=== PATIENT | female | born 2000 | race Caucasian/White ===

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

== ENCOUNTER 2018-08-17 14:14 | Emergency (ER) | payer MEDICAID ==
[2018-08-17 14:25] VITALS: BP 108/61
--- NOTE | 2018-08-17 14:26 | EDM.PDOC ---
ED HPI GENERAL MEDICAL PROBLEM - General Chief Complaint: Skin Complaint Stated Complaint: BOIL Time Seen by Provider: 08/17/18 14:26 Source of Information: Reports: Patient, Old Records, RN, RN Notes Reviewed History Limitations: Reports: No Limitations - History of Present Illness INITIAL COMMENTS - FREE TEXT/NARRATIVE: Pt presents to ER from home by POV with c/o abscess or boil to left axilla that began as an infected hair about 3 days ago. Pt denies drainage, fever, chills, or any other complaints. Denies Hx of MRSA. Onset: Gradual Duration: Day(s): (3) Location: Reports: Upper Extremity, Left (axilla) Quality: Reports: Ache, Pressure Severity: Moderate Improves with: Reports: None Worsens with: Reports: None Associated Symptoms: Reports: No Other Symptoms Left Axillary Pain Score (Numeric/FACES): 2 - Related Data Allergies Allergy/AdvReac Type Severity Reaction Status Date / Time No Known Allergies Allergy Verified 08/17/18 14:58 Home Meds: Home Meds Ibuprofen 400 mg PO Q6H PRN 11/02/17 [History] Past Medical History - Past Health History Medical/Surgical History: Denies Medical/Surgical History Other HEENT History: seasonal allergies Cardiovascular History: Reports: None Respiratory History: Reports: None Gastrointestinal History: Reports: None Genitourinary History: Reports: None 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, Musculoskeletal History: Reports: None Neurological History: Reports: None Other Psychiatric History: arm cutting noted to arms Endocrine/Metabolic History: Reports: None Hematologic History: Reports: None Immunologic History: Reports: None Oncologic (Cancer) History: Reports: None Dermatologic History: Reports: None - Infectious Disease History Infectious Disease History: Reports: None - Past Surgical History Head Surgeries/Procedures: Reports: None Social & Family History - Family History Family Medical History: Noncontributory - Caffeine Use Caffeine Use: Reports: None Other Caffeine Use: one/day - Living Situation & Occupation Living situation: Reports: with Family ED ROS GENERAL - Review of Systems Review Of Systems: ROS reveals no pertinent complaints other than HPI. ED EXAM, SKIN/RASH Exam: See Below Exam Limited By: No Limitations General Appearance: Alert, WD/WN, No Apparent Distress Throat/Mouth: Normal Inspection, Normal Voice, No Airway Compromise Head: Atraumatic, Normocephalic Neck: Normal Inspection, Supple, Non-Tender, Full Range of Motion. No: Lymphadenopathy (L), Lymphadenopathy (R) Respiratory/Chest: No Respiratory Distress, Lungs Clear, Normal Breath Sounds, No Accessory Muscle Use, Chest Non-Tender Cardiovascular: Regular Rate, Rhythm Extremities: Normal Range of Motion, Normal Capillary Refill, Other (2.5cm oval fluctuant abscess at left axilla, no drainage, slight increased warmth, mild surface erythema) ED SKIN PROCEDURES - I&D Site: left axilla Skin Prep: Chlorhexidine (Hibiciens), Saline, Sterile Drape Local Anesthesia: Lidocaine: 1% Plain Local Anesthetic Volume: 5cc Area Incised With: 11 Blade Drainage: Purulent, Moderate Amount Probed to Break Up Loculations: Yes Packed With: 1/4 in. Iodoform Sterile Dressinx4(s) Complications: No Course - Vital Signs Last Recorded V/S: Last Vital Signs Temp 98.0 F 08/17/18 14:23 Pulse 81 08/17/18 14:23 Resp 18 08/17/18 14:23 BP 108/61 08/17/18 14:23 Pulse Ox 100 08/17/18 14:23 - Orders/Labs/Meds Orders: Active Orders 24 hr Category Date Time Status CULTURE WOUND [RM] Stat Lab 08/17/18 14:35 Ordered Meds: Medications Discontinued Medications Generic Name Dose Route Start Last Admin Trade Name Glen PRN Reason Stop Dose Admin Bacitracin 1 dose 08/17/18 14:34 08/17/18 14:54 Bacitracin Oint 1 Gm TOP 08/17/18 14:35 1 dose ONETIME ONE Administration Clindamycin HCl 300 mg 08/17/18 14:34 08/17/18 14:54 Cleocin PO 08/17/18 14:35 300 mg ONETIME ONE Administration Lidocaine HCl 30 ml 08/17/18 14:34 08/17/18 14:54 Xylocaine-Mpf 1% INJECT 08/17/18 14:35 30 ml ONETIME ONE Administration Departure - Departure Time of Disposition: 15:04 Disposition: Home, Self-Care 01 Condition: Good Clinical Impression: Abscess of left axilla - Discharge Information *PRESCRIPTION DRUG MONITORING PROGRAM REVIEWED*: No *COPY OF PRESCRIPTION DRUG MONITORING REPORT IN PATIENT SKYE: No Instructions: Skin Abscess Forms: ED Department Discharge Additional Instructions: Rx: Clindamycin 300mg Remove packing tomorrow night (if it doesn't fall out sooner). May shower normally. Do not swim or soak in tub until the wound completely heals. Follow up in clinic next week for recheck. - My Orders Last 24 Hours: My Active Orders 08/17/18 14:35 CULTURE WOUND [RM] Stat - Assessment/Plan Last 24 Hours: My Active Orders 08/17/18 14:35 CULTURE WOUND [RM] Stat
[2018-08-17] MEDS ORDERED: Clindamycin HCl 150 MG Cap PO ONE (14:34)
[2018-08-17] MEDS ORDERED: Lidocaine 1% 30 ML SDV INJECT ONE (14:34)
[2018-08-17] MEDS ORDERED: Bacitracin Oint 1 GM U/D Packet TOP ONE (14:34)
== END 2018-08-17 15:21 | disposition home or self-care (01) ==
LOC: DL.ED 14:14
DX: L02.412 Cutaneous abscess of left axilla (principal)
CPT/HCPCS: 10061; 87070; 87077; 87186; 99283; A9270; J2001

== ENCOUNTER 2018-10-19 21:38 | Emergency (ER) | payer SELFPAY ==
[2018-10-19 21:45] VITALS: BP 125/73
--- NOTE | 2018-10-19 22:02 | EDM.PDOC ---
ED HPI GENERAL MEDICAL PROBLEM - General Chief Complaint: Eye Problems Stated Complaint: LEFT EYE SWALLON IN PAIN Time Seen by Provider: 10/19/18 21:55 Source of Information: Reports: Patient History Limitations: Reports: No Limitations - History of Present Illness INITIAL COMMENTS - FREE TEXT/NARRATIVE: This 17 yo female patient reports to the ED with redness and swelling of her left upper eyelid. The patient reports her symptoms started 3 days ago. The patient has been using warm packs, but continues to have symptoms. Onset Date: 10/16/18 Duration: Day(s):, Constant Location: Reports: Face (left eye) Quality: Reports: Ache, Dull Severity: Mild Improves with: Reports: None Worsens with: Reports: None Context: Reports: Other - Related Data Allergies Allergy/AdvReac Type Severity Reaction Status Date / Time No Known Allergies Allergy Verified 10/19/18 21:44 Home Meds: Home Meds Ibuprofen 400 mg PO Q6H PRN 11/02/17 [History] Past Medical History - Past Health History Medical/Surgical History: Denies Medical/Surgical History Other HEENT History: seasonal allergies Cardiovascular History: Reports: None Respiratory History: Reports: None Gastrointestinal History: Reports: None Genitourinary History: Reports: None 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, Musculoskeletal History: Reports: None Neurological History: Reports: None Other Psychiatric History: arm cutting noted to arms Endocrine/Metabolic History: Reports: None Hematologic History: Reports: None Immunologic History: Reports: None Oncologic (Cancer) History: Reports: None Dermatologic History: Reports: None - Infectious Disease History Infectious Disease History: Reports: None - Past Surgical History Head Surgeries/Procedures: Reports: None HEENT Surgical History: Reports: Other (See Below) Social & Family History - Family History Family Medical History: Noncontributory - Tobacco Use Smoking Status *Q: Current Every Day Smoker Years of Tobacco use: 3 Packs/Tins Daily: 0.1 - Caffeine Use Caffeine Use: Reports: None Other Caffeine Use: one/day - Recreational Drug Use Recreational Drug Use: No - Living Situation & Occupation Living situation: Reports: with Family ED ROS GENERAL - Review of Systems Review Of Systems: ROS reveals no pertinent complaints other than HPI. ED EXAM GENERAL W FULL EYE - Physical Exam Exam: See Below Exam Limited By: No Limitations General Appearance: Alert, WD/WN, No Apparent Distress Eye Exam: Left Eye: Other (Upper eyelid stye) Eyelids: Left: Stye Conjunctiva & Sclera: Bilateral: Normal Appearance Cornea Exam: Bilateral: Normal Appearance Extraocular Movements: Bilateral: Intact Pupillary Reaction: Bilateral: Brisk Ears: Normal External Exam, Normal Canal, Hearing Grossly Normal, Normal TMs Nose: Normal Inspection, Normal Mucosa, No Blood Throat/Mouth: Normal Inspection, Normal Lips, Normal Teeth, Normal Gums, Normal Oropharynx, Normal Voice, No Airway Compromise Head: Atraumatic, Normocephalic Neck: Normal Inspection, Supple, Non-Tender, Full Range of Motion Respiratory/Chest: No Respiratory Distress, Lungs Clear, Normal Breath Sounds, No Accessory Muscle Use, Chest Non-Tender Cardiovascular: Normal Peripheral Pulses, Regular Rate, Rhythm, No Edema, No Gallop, No JVD, No Murmur, No Rub GI/Abdominal: Normal Bowel Sounds, Soft, Non-Tender, No Organomegaly, No Distention, No Abnormal Bruit, No Mass (Female) Exam: Deferred Rectal (Female) Exam: Deferred Back Exam: Normal Inspection Extremities: Normal Inspection, Normal Range of Motion, Non-Tender, Normal Capillary Refill, No Pedal Edema Neurological: Alert, Oriented, CN II-XII Intact, Normal Cognition, Normal Gait, Normal Reflexes, No Motor/Sensory Deficits Course - Vital Signs Last Recorded V/S: Last Vital Signs Temp 36.3 C 10/19/18 21:42 Pulse 110 H 10/19/18 21:42 Resp 18 10/19/18 21:42 BP 125/73 10/19/18 21:42 Pulse Ox 99 10/19/18 21:42 Departure - Departure Time of Disposition: 21:59 Disposition: Home, Self-Care 01 Condition: Fair Clinical Impression: Hordeolum externum left upper eyelid - Discharge Information *PRESCRIPTION DRUG MONITORING PROGRAM REVIEWED*: Not Applicable *COPY OF PRESCRIPTION DRUG MONITORING REPORT IN PATIENT SKYE: Not Applicable Instructions: Stye Forms: ED Department Discharge Care Plan Goals: The patient was advised of the examination results during the visit. The patient was encouraged to use warm packs to the area. If the patient has any additional symptoms or concerns, the patient should either return to the emergency department or visit her primary care facility.
== END 2018-10-19 22:03 | disposition home or self-care (01) ==
LOC: DL.ED 21:38
DX: H00.014 Hordeolum externum left upper eyelid (principal); F17.210 Nicotine dependence, cigarettes, uncomplicated
CPT/HCPCS: 99282

== ENCOUNTER 2020-03-14 13:35 | Emergency (ER) | payer MEDICAID ==
[2020-03-14 14:09] VITALS: BP 116/68; PULSE 121
[2020-03-14 14:38] LABS: ANION GAP 12.6 mEq/L (7-13); CHLORIDE,CL 105 mmol/L (98-107); SODIUM,NA 140 mmol/L (136-145)
--- NOTE | 2020-03-14 14:38 | EDM.PDOC ---
ED HPI GENERAL MEDICAL PROBLEM - General Chief Complaint: Skin Complaint Stated Complaint: FACE AND BODY BROKE OUT IN BLISTERS Time Seen by Provider: 03/14/20 14:25 Source of Information: Reports: Patient History Limitations: Reports: No Limitations - History of Present Illness INITIAL COMMENTS - FREE TEXT/NARRATIVE: This 19 yo female patient reports to the ED due to an infection on her face, ears and scalp. The patient reports she noticed the symptoms started yesterday and have gotten worse. The patient reports she does have a history of MRSA in her family and home. The patient reports she has not been able to get into the clinic for this. Onset Date: 03/13/20 Duration: Constant, Getting Worse Location: Reports: Head, Face Quality: Reports: Other Severity: Moderate Improves with: Reports: None Worsens with: Reports: None Context: Reports: Other Associated Symptoms: Reports: No Other Symptoms Head Pain Score (Numeric/FACES): 7 - Related Data Allergies Allergy/AdvReac Type Severity Reaction Status Date / Time No Known Allergies Allergy Verified 03/14/20 14:20 Home Meds: Home Meds Ibuprofen 400 mg PO Q6H PRN 11/02/17 [History] Acetaminophen [Tylenol Extra Strength] 1,000 mg PO Q6H PRN 10/23/18 [History] Clindamycin HCl 150 mg PO TID 10/23/18 [History] L.acidoph,Paracasei, B.lactis [Probiotic] 2 each PO DAILY 10/23/18 [History] Tobramycin [Tobrex Ophth Oint] 1 applic EYELF QID 10/23/18 [History] Past Medical History - Past Health History Medical/Surgical History: Denies Medical/Surgical History Other HEENT History: seasonal allergies Cardiovascular History: Reports: None Respiratory History: Reports: None Gastrointestinal History: Reports: None Genitourinary History: Reports: None [employer]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, Musculoskeletal History: Reports: None Neurological History: Reports: None Other Psychiatric History: arm cutting noted to arms Endocrine/Metabolic History: Reports: None Hematologic History: Reports: None Immunologic History: Reports: None Oncologic (Cancer) History: Reports: None Dermatologic History: Reports: None - Infectious Disease History Infectious Disease History: Reports: None - Past Surgical History Head Surgeries/Procedures: Reports: None HEENT Surgical History: Reports: Other (See Below) Social & Family History - Family History Family Medical History: No Pertinent Family History - Caffeine Use Caffeine Use: Reports: Coffee, Soda Other Caffeine Use: one/day - Living Situation & Occupation Living situation: Reports: with Family ED ROS GENERAL - Review of Systems Review Of Systems: Comprehensive ROS is negative, except as noted in HPI. ED EXAM, SKIN/RASH Exam: See Below Exam Limited By: No Limitations General Appearance: Alert, WD/WN, Moderate Distress Eye Exam: Bilateral Eye: EOMI, Normal Inspection, PERRL Ears: Normal Canal, Hearing Grossly Normal, Normal TMs Nose: Normal Inspection, Normal Mucosa, No Blood Throat/Mouth: Normal Inspection, Normal Lips, Normal Teeth, Normal Gums, Normal Oropharynx, Normal Voice, No Airway Compromise Head: Atraumatic, Normocephalic Neck: Normal Inspection, Supple, Non-Tender, Full Range of Motion Respiratory/Chest: No Respiratory Distress, Lungs Clear, Normal Breath Sounds, No Accessory Muscle Use, Chest Non-Tender Cardiovascular: Normal Peripheral Pulses, Regular Rate, Rhythm, No Edema, No Gallop, No JVD, No Murmur, No Rub GI/Abdominal: Normal Bowel Sounds, Soft, Non-Tender, No Organomegaly, No Distention, No Abnormal Bruit, No Mass (Female) Exam: Deferred Rectal (Female) Exam: Deferred Back Exam: Normal Inspection, Full Range of Motion, NT Extremities: Normal Inspection, Normal Range of Motion, Non-Tender, No Pedal Edema, Normal Capillary Refill Neurological: Alert, Oriented Psychiatric: Normal Affect, Normal Mood Skin: Erythema, Excoriations, Wound/Incision, Other (Areas of concern, upper lip (with honey crusting), chin, right ear, right scalp, right posterior neck, left ear and left scalp.) Location, Skin: Head, Face Characteristics: Erythematous Associated features: Tenderness, Swelling, Crusting. No: Weeping Lymphatic: No Adenopathy Course - Vital Signs Last Recorded V/S: Last Vital Signs Temp 37.0 C 03/14/20 14:08 Pulse 121 H 03/14/20 14:08 Resp 18 03/14/20 14:08 BP 116/68 03/14/20 14:08 Pulse Ox 100 03/14/20 14:08 - Orders/Labs/Meds Orders: Active Orders 24 hr Category Date Time Status CULTURE URINE [RM] Stat Lab 03/14/20 14:50 Received UA W/MICROSCOPIC [URIN] Stat Lab 03/14/20 14:50 Results Labs: Laboratory Tests 03/14/20 03/14/20 03/14/20 Range/Units 14:13 14:13 14:50 WBC 10.8 H (5.0-10.0) 10^3/uL RBC 4.35 (4.2-5.4) 10^6/uL Hgb 11.3 L D (12.0-16.0) g/dL Hct 34.7 L (37.0-47.0) % MCV 79.8 L D (80-100) fL MCH 26.0 L (27.0-34.0) pg MCHC 32.6 L (33.0-35.0) g/dL Plt Count 259 D (150-450) 10^3/uL Sodium 140 (136-145) mmol/L Potassium 3.6 (3.5-5.1) mmol/L Chloride 105 (98-107) mmol/L Carbon Dioxide 26 (21-32) mmol/L Anion Gap 12.6 (7-13) mEq/L BUN 7 (7-18) mg/dL Creatinine 0.56 (0.55-1.02) mg/dL Est Cr Clr Drug Dosing 114.02 mL/min Estimated GFR (MDRD) > 60 BUN/Creatinine Ratio 12.5 (No establ ref range) Glucose 112 H (74-99) mg/dL Calcium 7.9 L (8.5-10.1) mg/dL Total Bilirubin 0.2 (0.2-1.0) mg/dL AST 34 (15-37) U/L ALT 110 H (14-59) U/L Alkaline Phosphatase 168 H (46-116) U/L Total Protein 6.4 (6.4-8.2) g/dL Albumin 2.8 L (3.4-5.0) g/dL Globulin 3.6 Albumin/Globulin Ratio 0.78 Urine Color Yellow (YELLOW) Urine Appearance Clear (CLEAR) Urine pH 7.0 (5.0-9.0) Ur Specific [place] 1.025 (1.005-1.030) Urine Protein Negative (NEGATIVE) Urine Glucose (UA) Negative (NEGATIVE) Urine Ketones Negative (NEGATIVE) Urine Occult Blood Moderate H (NEGATIVE) Urine Nitrite Negative (NEGATIVE) Urine Bilirubin Negative (NEGATIVE) Urine Urobilinogen 1.0 (0.2-1.0) mg/dL Ur Leukocyte Esterase Trace H (NEGATIVE) Urine HCG, Qual Urine Opiates Screen (NEGATIVE) Ur Oxycodone Screen (NEGATIVE) Urine Methadone Screen (NEGATIVE) Ur Barbiturates Screen (NEGATIVE) U Tricyclic Antidepress (NEGATIVE) Ur Phencyclidine Scrn (NEGATIVE) Ur Amphetamine Screen (NEGATIVE) U Methamphetamines Scrn (NEGATIVE) Urine MDMA Screen (NEGATIVE) U Benzodiazepines Scrn (NEGATIVE) Urine Cocaine Screen (NEGATIVE) U Marijuana (THC) Screen (NEGATIVE) 03/14/20 03/14/20 Range/Units 14:50 14:50 WBC (5.0-10.0) 10^3/uL RBC (4.2-5.4) 10^6/uL Hgb (12.0-16.0) g/dL Hct (37.0-47.0) % MCV (80-100) fL MCH (27.0-34.0) pg MCHC (33.0-35.0) g/dL Plt Count (150-450) 10^3/uL Sodium (136-145) mmol/L Potassium (3.5-5.1) mmol/L Chloride (98-107) mmol/L Carbon Dioxide (21-32) mmol/L Anion Gap (7-13) mEq/L BUN (7-18) mg/dL Creatinine (0.55-1.02) mg/dL Est Cr Clr Drug Dosing mL/min Estimated GFR (MDRD) BUN/Creatinine Ratio (No establ ref range) Glucose (74-99) mg/dL Calcium (8.5-10.1) mg/dL Total Bilirubin (0.2-1.0) mg/dL AST (15-37) U/L ALT (14-59) U/L Alkaline Phosphatase (46-116) U/L Total Protein (6.4-8.2) g/dL Albumin (3.4-5.0) g/dL Globulin Albumin/Globulin Ratio Urine Color (YELLOW) Urine Appearance (CLEAR) Urine pH (5.0-9.0) Ur Specific [place] (1.005-1.030) Urine Protein (NEGATIVE) Urine Glucose (UA) (NEGATIVE) Urine Ketones (NEGATIVE) Urine Occult Blood (NEGATIVE) Urine Nitrite (NEGATIVE) Urine Bilirubin (NEGATIVE) Urine Urobilinogen (0.2-1.0) mg/dL Ur Leukocyte Esterase (NEGATIVE) Urine HCG, Qual Negative Urine Opiates Screen Negative (NEGATIVE) Ur Oxycodone Screen Negative (NEGATIVE) Urine Methadone Screen Negative (NEGATIVE) Ur Barbiturates Screen Negative (NEGATIVE) U Tricyclic Antidepress Negative (NEGATIVE) Ur Phencyclidine Scrn Negative (NEGATIVE) Ur Amphetamine Screen Negative (NEGATIVE) U Methamphetamines Scrn Positive H (NEGATIVE) Urine MDMA Screen Negative (NEGATIVE) U Benzodiazepines Scrn Negative (NEGATIVE) Urine Cocaine Screen Negative (NEGATIVE) U Marijuana (THC) Screen Negative (NEGATIVE) Departure - Departure Time of Disposition: 15:06 Disposition: Home, Self-Care 01 Condition: Fair Clinical Impression: Cellulitis diffuse, face, Impetigo - Discharge Information *PRESCRIPTION DRUG MONITORING PROGRAM REVIEWED*: Not Applicable *COPY OF PRESCRIPTION DRUG MONITORING REPORT IN PATIENT SKYE: Not Applicable Instructions: Cellulitis, Adult, [id number], Impetigo, Adult Forms: ED Department Discharge Care Plan Goals: The patient was advised of the examination results during the visit. The patient was also given a script for Clindamycin (300 mg) to take 1 by mouth 4 times per day for 10 days. The patient was encouraged to follow-up with a her primary care facility in 1 week. If the patient has any additional symptoms or concerns, the patient should either follow-up with her primary care facility or return to the emergency department. Sepsis Event Note (ED) - Evaluation Sepsis Screening Result: No Definite Risk - Focused Exam Vital Signs: Vital Signs Temp Pulse Resp BP Pulse Ox 03/14/20 14:08 37.0 C 121 H 18 116/68 100 - My Orders Last 24 Hours: My Active Orders 03/14/20 14:50 CULTURE URINE [RM] Stat UA W/MICROSCOPIC [URIN] Stat - Assessment/Plan Last 24 Hours: My Active Orders 03/14/20 14:50 CULTURE URINE [RM] Stat UA W/MICROSCOPIC [URIN] Stat
== END 2020-03-14 15:15 | disposition home or self-care (01) ==
LOC: DL.ED 13:35
DX: L03.211 Cellulitis of face (principal); L01.00 Impetigo, unspecified
CPT/HCPCS: 36415; 80053; 80305-QW; 81001; 81025; 85027; 87086; 99283

== ENCOUNTER 2022-01-09 03:04 | Emergency (ER) | payer MEDICAID ==
[2022-01-09 04:34] VITALS: PULSE 66
[2022-01-09 05:14] LABS: CORONAVIRUS COVID-19 NAA NEGATIVE (NEGATIVE)
== END 2022-01-09 06:39 | disposition home or self-care (01) ==
LOC: DL.ED 03:04
DX: R06.02 Shortness of breath (principal); Z20.822 Contact with and (suspected) exposure to COVID-19
CPT/HCPCS: 0240U; 36415; 71045; 82150; 83690; 83880; 84443; 84484; 93005; 99285

== ENCOUNTER 2022-07-19 22:41 | Emergency (ER) | payer MEDICAID ==
[2022-07-19] MEDS ORDERED: fentaNYL 100 MCG/2 ML SDV IVPUSH ONE ×2 (23:03→23:17)
[2022-07-19] MEDS ORDERED: Ondansetron 4 MG/2 ML SDV IVPUSH ONE (23:03)
[2022-07-19] MEDS ORDERED: Lactated Ringers 1,000 ML IV ONE (23:03)
[2022-07-19 23:23] LABS: BASOPHILS PERCENT AUTO 0.2 % (0.0-1.0); EOSINOPHILS PERCENT AUTO 0.4 % (1.0-3.0); HEMATOCRIT 35.9 % (37.0-47.0); HEMOGLOBIN 12.1 g/dL (12.0-16.0); LYMPHOCYTES PERCENT AUTO 12.8 % (20.5-50.1); MEAN CORPUSCULAR HEMOGLOBIN 29.3 pg (27.0-34.0); MEAN CORPUSCULAR HGB CONC 33.7 g/dL (33.0-35.0); MEAN CORPUSCULAR VOLUME 86.9 fL (80-100); MONOCYTES PERCENT AUTO 5.1 % (2-8); NEUTROPHILS PERCENT AUTO 81.5 % (42.2-75.2); PLATELET COUNT,PLT 231 10^3/uL (150-450); RED BLOOD CELL COUNT 4.13 10^6/uL (4.2-5.4); WHITE BLOOD CELL COUNT,WBC 10.7 10^3/uL (5.0-10.0)
[2022-07-19 23:41] LABS: ALANINE AMINOTRANSFERASE,ALT 95 U/L (14-59); ALBUMIN 3.5 g/dL (3.4-5.0); ALKALINE PHOSPHATASE 121 U/L (46-116); AMYLASE 77 U/L (25-115); ANION GAP 12.8 mEq/L (7-13); ASPARTATE AMNIOTRANSFERASE,AST 50 U/L (15-37); BILIRUBIN TOTAL 0.3 mg/dL (0.2-1.0); BLOOD UREA NITROGEN,BUN 10 mg/dL (7-18); BUN/CREATININE RATIO 12.3 (No establ ref range); CARBON DIOXIDE,CO2 23 mmol/L (21-32); CHLORIDE,CL 107 mmol/L (98-107); CREATININE 0.81 mg/dL (0.55-1.02); ETHANOL BLOOD MEDICAL 105 mg/dL (0); GLUCOSE RANDOM 116 mg/dL (70-99); LIPASE 131 U/L (73-393); POTASSIUM,K 3.8 mmol/L (3.5-5.1); PROTEIN TOTAL,TP 6.9 g/dL (6.4-8.2); SODIUM,NA 139 mmol/L (136-145)
[2022-07-19 23:43] LABS: ESTIMATED GFR 105 mL/min (>=60)
[2022-07-19 23:46] LABS: HCG QUALITATIVE,SERUM NEGATIVE (NEGATIVE)
[2022-07-20] MEDS ORDERED: HYDROmorphone 1 MG/ML Syringe IVPUSH ONE (00:01)
[2022-07-20] MEDS ORDERED: ceFAZolin 2 GM Vial IVPUSH ONE (00:01)
[2022-07-20 01:08] LABS: APPEARANCE,URINE CLEAR (CLEAR); BILIRUBIN,URINE NEGATIVE (NEGATIVE); COLOR,URINE YELLOW (YELLOW); GLUCOSE,URINE NEGATIVE (NEGATIVE); KETONES,URINE NEGATIVE (NEGATIVE); LEUKOCYTE ESTERASE,URINE NEGATIVE (NEGATIVE); NITRITE,URINE NEGATIVE (NEGATIVE); OCCULT BLOOD,URINE LARGE (NEGATIVE); PROTEIN,URINE NEGATIVE (NEGATIVE); UROBILINOGEN,URINE 0.2 mg/dL (0.2-1.0)
[2022-07-20 01:16] LABS: AMORPHOUS SEDIMENT,URINE FEW /HPF (NOT SEEN); BACTERIA,URINE FEW /HPF (0-FEW/HPF); EPITHELIAL CELLS,URINE FEW /HPF (NOT SEEN); MUCUS,URINE FEW /LPF (NOT SEEN); RBC,URINE 0-5 /HPF (0-5); WBC,URINE 0-5 /HPF (0-5/HPF)
[2022-07-20 01:17] LABS: AMPHETAMINES,URINE NEGATIVE (NEGATIVE); BARBITURATES,URINE NEGATIVE (NEGATIVE); BENZODIAZEPINE,URINE NEGATIVE (NEGATIVE); MDMA (ECSTASY), URINE NEGATIVE (NEGATIVE); METHADONE,URINE NEGATIVE (NEGATIVE); METHAMPHETAMINES,URINE NEGATIVE (NEGATIVE); OPIATES,URINE NEGATIVE (NEGATIVE); OXYCODONE,URINE NEGATIVE (NEGATIVE); PHENCYCLIDINE,URINE NEGATIVE (NEGATIVE); TCA,URINE NEGATIVE (NEGATIVE)
[2022-07-20] MEDS ORDERED: Take Home: Acetaminophen/oxyCODONE 325-5 MG, 5 Tab Pack PO ONE (01:40)
[2022-07-20] MEDS ORDERED: fentaNYL 100 MCG/2 ML SDV IVPUSH ONE (01:40)
[2022-07-20] MEDS ORDERED: Take Home: Ondansetron 4 MG Tab.DIS, 5 Tab Pack PO ONE (01:41)
== END 2022-07-20 03:10 ==
LOC: DL.ED 22:41
DX: S42.351B Displaced comminuted fracture of shaft of humerus, right arm, initial encounter for open fracture (principal); S52.201A Unspecified fracture of shaft of right ulna, initial encounter for closed fracture; F10.920 Alcohol use, unspecified with intoxication, uncomplicated; Y90.5 Blood alcohol level of 100-119 mg/100 ml; V86.55XA Driver of 3- or 4- wheeled all-terrain vehicle (ATV) injured in nontraffic accident, initial encounter
CPT/HCPCS: 36415; 72125; 73080; 80053; 80305; 80307; 81001; 82150; 83690; 84703; 85025; 99284; J3010

== ENCOUNTER 2023-01-11 19:59 | Emergency (ER) | payer MEDICAID ==
[2023-01-11 20:06] VITALS: BP 132/80; PULSE 101
== END 2023-01-11 20:32 | disposition home or self-care (01) ==
LOC: DL.ED 19:59
DX: T54.91XA Toxic effect of unspecified corrosive substance, accidental (unintentional), initial encounter (principal); T23.502A Corrosion of first degree of left hand, unspecified site, initial encounter; F17.210 Nicotine dependence, cigarettes, uncomplicated; Z79.899 Other long term (current) drug therapy
CPT/HCPCS: 99282; 99283

== ENCOUNTER 2023-07-24 14:43 | Emergency (ER) | payer MEDICAID ==
[2023-07-24 15:08] VITALS: BP 110/80; PULSE 82
[2023-07-24 15:56] LABS: ALBUMIN 3.6 g/dL (3.4-5.0); ANION GAP 12.3 mEq/L (7-13); BILIRUBIN TOTAL 0.4 mg/dL (0.2-1.0); BUN/CREATININE RATIO 20.3 (No establ ref range); CALCIUM 8.4 mg/dL (8.5-10.1); CREATININE 0.79 mg/dL (0.55-1.02); EST CRCL DRUG DOSING (CG) 78.87 mL/min; POTASSIUM,K 4.3 mmol/L (3.5-5.1); PROTEIN TOTAL,TP 7.2 g/dL (6.4-8.2)
== END 2023-07-24 16:21 | disposition home or self-care (01) ==
LOC: DL.ED 14:43
DX: M94.0 Chondrocostal junction syndrome [Tietze] (principal); R94.5 Abnormal results of liver function studies; Z79.899 Other long term (current) drug therapy
CPT/HCPCS: 36415; 71045; 80053; 85025; 85379; 93005; 93010; 99284; 99285

== ENCOUNTER 2024-05-02 20:58 | Emergency (ER) | payer MEDICAID ==
[2024-05-02] MEDS: Oxymetazoline 0.05% Nasal Spray 30 ML Bottle NAS ONE (21:14)
[2024-05-02 21:17] VITALS: BP 127/78; PULSE 90
== END 2024-05-02 21:20 | disposition home or self-care (01) ==
LOC: DL.ED 20:58
DX: B34.9 Viral infection, unspecified (principal); Z79.899 Other long term (current) drug therapy; Z79.1 Long term (current) use of non-steroidal anti-inflammatories (NSAID)
CPT/HCPCS: 99282; 99283; A9270-GY

== ENCOUNTER 2024-10-11 08:05 | Inpatient (IN) | payer MEDICAID ==
[2024-10-11] MEDS ORDERED: Ondansetron 4 MG/2 ML SDV IVPUSH PRN (08:44)
[2024-10-11] MEDS ORDERED: Carboprost Tromethamine 250 MCG/1 ML Amp IM PRN (08:44)
[2024-10-11] MEDS ORDERED: Sodium Chloride 0.9% 10 ML Syringe FLUSH PRN (08:44)
[2024-10-11 08:49] LABS: PLATELET COUNT,PLT 215.0 10^3/uL (150-450); RED BLOOD CELL COUNT 3.84 10^6/uL (4.2-5.4); WHITE BLOOD CELL COUNT,WBC 10.6 10^3/uL (5.0-10.0)
[2024-10-11] MEDS: Oxytocin/Normal Saline 30 UNIT/500 ML BAG IV SCH (09:10)
[2024-10-11] MEDS: Lactated Ringers 1,000 ML IV SCH (09:10)
[2024-10-11] MEDS ORDERED: Misoprostol 50 MCG (1/2 of 100 MCG) Tab PO PRN (18:10)
[2024-10-11] MEDS: fentaNYL 100 MCG/2 ML SDV IVPUSH PRN (22:37)
[2024-10-12] MEDS ORDERED: Sodium Chloride 0.9% 10 ML Syringe FLUSH PRN (07:32)
[2024-10-12] MEDS ORDERED: Carboprost Tromethamine 250 MCG/1 ML Amp IM PRN (07:32)
[2024-10-12] MEDS ORDERED: Oxytocin 10 Units/1 ML SDV IM PRN (07:32)
[2024-10-12] MEDS ORDERED: Witch Hazel Medicated Pads 100/Jar TOP PRN (07:32)
[2024-10-12] MEDS: Benzocaine/Menthol 20%-0.5% Spray 78 GM Cannister TOP PRN (08:50)
[2024-10-12] MEDS: Prenatal Multivitamin with Calcium/Folic Acid/Iron Tab PO SCH (08:50)
[2024-10-12] MEDS: Lactated Ringers 1,000 ML IV ONE (09:51)
[2024-10-13 17:48] VITALS: BP 104/60; PULSE 84
== END 2024-10-13 13:00 | disposition home or self-care (01) | DRG 806 ==
LOC: DL.OBCHECK 08:05 → DL.OB 08:44 → OBSVTOIN 10-12 07:10 → EEVIPCON 10-12 07:10
PROVIDERS: ADMIT Family Medicine; ATTEND Family Medicine
PROC: 10907ZC Drainage of Amniotic Fluid, Therapeutic from Products of Conception, Via Natural or Artificial Opening (ICD-10-PCS; principal; 2024-10-12)
PROC: 3E0R3BZ Introduction of Anesthetic Agent into Spinal Canal, Percutaneous Approach (ICD-10-PCS; principal; 2024-10-12)
PROC: 3E033VJ Introduction of Other Hormone into Peripheral Vein, Percutaneous Approach (ICD-10-PCS; principal; 2024-10-12)
PROC: 10E0XZZ Delivery of Products of Conception, External Approach (ICD-10-PCS; principal; 2024-10-12)
DX: O80 Encounter for full-term uncomplicated delivery (principal); O98.52 Other viral diseases complicating childbirth; Z37.0 Single live birth; Z3A.39 39 weeks gestation of pregnancy; Z87.891 Personal history of nicotine dependence; Z79.899 Other long term (current) drug therapy
CPT/HCPCS: 01967; 36415; 51701; 59409; 85027; A9270-GY; J2590; J3010; J7120